=== PATIENT | female | born 1945 | race Caucasian/White ===

== ENCOUNTER 2018-08-04 09:28 | Inpatient (IN) | payer MEDICARE, OTHER ==
[2018-08-04] MEDS ORDERED: Lidocaine Viscous Sol 2% 15 ml UD Cup ONE (10:07)
[2018-08-04] MEDS ORDERED: Mag-Al 1200 mg/1200 mg/30 ML UDCUP ONE (10:09)
[2018-08-04] MEDS ORDERED: Ondansetron PF 4 MG/2 ML Vial ONE (10:09)
[2018-08-04 10:22] LABS: ALT (SGPT) 19 U/L (8-55); AST (SGOT) 28 U/L (5-34); Albumin 4.4 g/dL (3.4-4.8); Alkaline Phosphatase 94 U/L (40-150); Anion Gap 16 mmol/L (10-20); BUN (Urea Nitrogen) 10 mg/dL (9.8-20.1); Bilirubin, Total 0.5 mg/dL (0.2-1.2); Calc. Creatinine Clearance 0 mL/min (70-130); Calcium 8.8 mg/dL (7.8-10.44); Carbon Dioxide 25 mmol/L (23-31); Chloride 81 mmol/L (98-107); Estimated GFR-MDRD Greater than 90; Globulin 3.2 g/dL (2.4-3.5); Glucose 142 mg/dL (83-110); Protein, Total 7.6 g/dL (6.0-8.3)
[2018-08-04 10:26] LABS: CKMB 5.2 ng/mL (0-6.6); Troponin I Less than 0.010 ng/mL (< 0.028)
[2018-08-04 10:32] LABS: Potassium 2.8 mmol/L (3.5-5.1); Sodium 119 mmol/L (136-145)
--- NOTE | 2018-08-04 10:38 | RAD ---
FRONTAL RADIOGRAPH CHEST: Date: 08/04/18 COMPARISON: None. HISTORY: Cough. FINDINGS: There is elevation of the right hemidiaphragm. Heart and mediastinal contours are stable. There is at herosclerotic calcification of the aortic arch. There is no pneumothorax or pleural fluid, and no lob ar consolidation or alveolar edema. IMPRESSION: Elevation of right hemidiaphragm. No focal consolidation or alveolar edema. POS: [facility]
[2018-08-04 10:47] LABS: Band 4 % (5-11); Eosinophils 1 % (0-10); Hemoglobin 13.9 g/dL (12.0-16.0); Lymphocytes 19 % (21-51); MDiff Complete? YES; Mean Corpuscular HGB CONC 34.3 g/dL (32.0-36.0); Mean Corpuscular Hemoglobin 27.7 pg (27.0-31.0); Mean Corpuscular Volume 80.9 fL (78.0-98.0); Mean Platelet Volume 7.4 fL (7.4-10.4); Monocytes 10 % (0-10); Neutrophil 66 % (42-75); PLT Morphology Comment Appears Adequate; Platelet Count 235 thou/uL (130-400); RBC Distribution Width 12.4 % (11.5-14.5); Red Blood Cell (RBC) Count 5.03 mill/uL (4.20-5.40); White Blood Cell (WBC) Count 2.5 thou/uL (4.8-10.8)
[2018-08-04] MEDS ORDERED: Potassium Chloride 20 MEQ TAB ONE (11:01)
[2018-08-04 11:51] LABS: Bilirubin Negative (Negative); Blood, Urine Trace (Negative); Clarity CLEAR (Clear); Glucose, Urine (Dipstick) 100 mg/dL (Negative); Leukocyte Negative (Negative); Nitrite Negative (Negative); Protein, Urine (Dipstick) 100 mg/dL (Neg-Trace); Specific Gravity, Urine 1.011 (1.002-1.036); Urobilinogen 0.2 mg/dL (0.2-1.0); pH, Urine 7.5 (5.0-9.0)
[2018-08-04 11:56] LABS: Bacteria/HPF None Seen HPF (None Seen); Hyaline Casts/LPF 0-3 HYALINE CAST LPF (0-3 Hyaline); Pathc Cast-AUWi Flag 0.14 (0-2.49); Squamous Epithelial 0-3 HPF (0-3); WBC/HPF 0-3 HPF (0-3)
[2018-08-04] MEDS ORDERED: Potassium Chloride 20 MEQ/100 ML PREMIX BAG ONE (11:56)
[2018-08-04] MEDS ORDERED: Sodium Chloride 0.9% 1,000 ML IV SCH (13:00)
[2018-08-04] MEDS ORDERED: NS 0.9% w/ 40 MEQ KCL 1,000 ML IV SCH (13:00)
[2018-08-04 13:04] LABS: PTT 49.4 SEC (22.9-36.1); Prothrombin Time 13.2 SEC (12.0-14.7)
[2018-08-04] MEDS ORDERED: Melatonin 3 MG TAB PO PRN (13:36)
[2018-08-04] MEDS ORDERED: hydrALAZINE 20 MG/ML VIAL SLOW IVP PRN (13:37)
[2018-08-04] MEDS: Potassium Chloride 20 MEQ in Premix Bag 1 BAG IVPB SCH ×3 (14:47→17:18)
[2018-08-04 14:50] VITALS: BMI 32.0
--- NOTE | 2018-08-04 15:21 | HP ---
PRIMARY CARE PROVIDER: Dr. Agata Wang at [facility]. CHIEF COMPLAINT: Generalized weakness. HISTORY OF PRESENT ILLNESS: Ms. Avila is a pleasant 72-year-old lady, who was seen at [facility] on August 04, 2018. She reports that over the last week, she has been having generalized weakness. She also reports nausea and vomiting over the last week. It has been getting progressively worse, and now, she is unable to tolerate any liquids or solids. She reports having constant dry retching. She has been unable to sleep well secondary to symptoms. She denies any diarrhea, but reports that one of the days, she had 3 loose stools. Her last bowel movement was 2 days ago. She denies any fevers or chills. She denies any abdominal pain. She went to [facility] yesterday and was told that she probably had a viral infection. She came to the emergency room today because of ongoing symptoms. She also reports on and off cough, which is productive of occasional sputum. She tried Robitussin at home. She reports that she has not been urinating a lot. REVIEW OF SYSTEMS: All other systems reviewed and found to be negative. PAST MEDICAL HISTORY: Significant for hypertension and breast cancer, status post radiation therapy and tamoxifen for 5 years, initially diagnosed in 2004. PAST SURGICAL HISTORY: Hysterectomy. FAMILY HISTORY: No family history of coronary artery disease. SOCIAL HISTORY: The patient denies tobacco use, alcohol use, or recreational drug use. She lives alone at home. CODE STATUS: I discussed her code status. She is full code. ALLERGIES: ASPIRIN AND CODEINE. CURRENT MEDICATIONS: 1. Atenolol 25 mg 2 times a day. 2. Hydrochlorothiazide 12.5 mg daily. PHYSICAL EXAMINATION: GENERAL: Ms. Avila is awake and alert, not in acute distress. VITAL SIGNS: Blood pressure 174/71, pulse 80, respiratory rate 18, and oxygen saturation 96% on room air. She is afebrile. EYES: No scleral icterus. No conjunctival pallor. ENT: Dry mucosal membranes. No oropharyngeal erythema or exudates. NECK: Supple, nontender. Trachea is midline. RESPIRATORY: Accessory muscles of breathing are not active. Chest wall movements are symmetric bilaterally. Lungs are clear to auscultation without wheeze, rhonchi, or crepitations. CARDIOVASCULAR: S1 and S2 are heard, regular. Peripheral pulses palpable. No carotid bruits. No pericardial rub. ABDOMEN: Soft, nontender. Bowel sounds heard. No hepatomegaly. No splenomegaly. NEUROLOGIC: Cranial nerves 2 through 12 intact. MUSCULOSKELETAL: Power is 5/5 in all 4 extremities. SKIN: No rashes or subcutaneous nodules. LYMPHATICS: No cervical lymphadenopathy. PSYCHIATRIC: Normal mood, normal affect, the patient is oriented to person, place, and time. LABS AND INVESTIGATIONS: Ms. Avila' labs and investigations were reviewed. I reviewed her electrocardiogram, which shows normal sinus rhythm, no ST changes to suggest an acute coronary syndrome. I also reviewed her chest x-ray, which does not show any pulmonary infiltrates. She has leukopenia with 2500 white cells, normal hemoglobin, normal platelet count. INR 1.0. Hyponatremia with sodium 119, hypokalemia with potassium 2.8, decreased serum osmolality of 251, normal blood urea nitrogen, normal creatinine, normal LFTs, and normal troponin I. Urinalysis is positive for protein, glucose, ketones, and blood. ASSESSMENT AND PLAN: Ms. Avila is a pleasant 72-year-old lady, who was seen at [facility] on August 04, 2018. Her problem list includes: 1. Hyponatremia: Ms. Avila is presenting with hyponatremia. Clinically, she is dehydrated. We will check urine electrolytes and osmolality. We will start Ms. Avila on intravenous fluids and recheck electrolytes. Nephrology Service is also being consulted. 2. Hypokalemia: We will replace potassium and recheck. 3. Dehydration: The patient will receive intravenous normal saline. We will attempt clear fluid diet if she can tolerate. 4. Hypertension: We will discontinue hydrochlorothiazide, given her hyponatremia. We will start p.r.n. IV hydralazine. We will continue atenolol. We will monitor vital signs and titrate antihypertensives as needed. Many thanks for allowing me to participate in your patient's care. Please feel free to contact with any questions or concerns. LEVEL OF RISK: High. LEVEL OF COMPLEXITY: High. Job ID: [id number]
[2018-08-04 16:39] LABS: Potassium, Urine Less than 10.0 mmol/L; Sodium, Urine 25 mmol/L (Not Available)
[2018-08-04 18:39] LABS: Anion Gap 15 mmol/L (10-20); Carbon Dioxide 23 mmol/L (23-31); Chloride 93 mmol/L (98-107); Potassium 3.6 mmol/L (3.5-5.1); Sodium 127 mmol/L (136-145)
[2018-08-04] MEDS ORDERED: Atenolol 25 MG TAB PO SCH (21:00)
[2018-08-04 21:26] LABS: Potassium 3.1 mmol/L (3.5-5.1)
[2018-08-04] MEDS: Atenolol 50 MG TAB PO SCH (22:00)
[2018-08-04] MEDS: Acetaminophen 325 MG TAB PO PRN (22:01)
[2018-08-05 05:28] LABS: #Monocytes 0.4 thou/uL (0.11-0.59); #Neutrophils 2.3 thou/uL (1.40-6.50); %Basophils 0.1 % (0.0-1.0); %Eosinophils 0.2 % (0.0-10.0); %Lymphocytes 27.2 % (21.0-51.0); %Monocytes 11.2 % (0.0-10.0); %Neutrophils 61.2 % (42.0-75.0); Hemoglobin 13.6 g/dL (12.0-16.0); Mean Corpuscular HGB CONC 34.7 g/dL (32.0-36.0); Mean Corpuscular Hemoglobin 28.6 pg (27.0-31.0); Mean Corpuscular Volume 82.7 fL (78.0-98.0); Mean Platelet Volume 7.4 fL (7.4-10.4); Platelet Count 220 thou/uL (130-400); RBC Distribution Width 12.5 % (11.5-14.5); Red Blood Cell (RBC) Count 4.75 mill/uL (4.20-5.40); White Blood Cell (WBC) Count 3.8 thou/uL (4.8-10.8)
[2018-08-05 05:40] LABS: Anion Gap 14 mmol/L (10-20); BUN (Urea Nitrogen) 11 mg/dL (9.8-20.1); Calc. Creatinine Clearance 85 mL/min (70-130); Calcium 8.4 mg/dL (7.8-10.44); Carbon Dioxide 22 mmol/L (23-31); Chloride 94 mmol/L (98-107); Estimated GFR-MDRD 89; Glucose 88 mg/dL (83-110); Potassium 3.1 mmol/L (3.5-5.1); Sodium 127 mmol/L (136-145)
[2018-08-05] MEDS: Enoxaparin Sodium 40 MG/0.4 ML SYRINGE SC SCH (07:49)
[2018-08-05] MEDS: Atenolol 50 MG TAB PO SCH ×2 (07:49→20:41)
[2018-08-05] MEDS: Potassium Chloride 20 MEQ TAB PO SCH ×3 (09:34→16:18)
[2018-08-05 12:18] LABS: Potassium 3.9 mmol/L (3.5-5.1)
[2018-08-05] MEDS: Sodium Chloride 0.9% 1,000 ML IV SCH (14:51)
[2018-08-05] MEDS: Acetaminophen 325 MG TAB PO PRN (20:47)
--- NOTE | 2018-08-05 21:13 | PRG ---
DATE OF SERVICE: 08/05/2018 SUBJECTIVE: Patient was seen and examined at bedside and overnight events noted. Patient denies any shortness of breath or chest pain or palpitation. No history of nausea or vomiting or diarrhea or fever or chills or cramps. OBJECTIVE: GENERAL: This is a well-built female, in no apparent distress. VITAL SIGNS: Temperature 98.6, pulse 72, respirations 17, blood pressure 152/67. HEENT: Atraumatic, normocephalic. Oral mucosa is moist NECK: Supple. CARDIOVASCULAR: S1, S2 heard. Rate and rhythm regular. RESPIRATORY: Clear to auscultation. GASTROINTESTINAL: Abdomen is soft. MUSCULOSKELETAL: No tenderness. No edema. DERMATOLOGIC: No skin rash. NEUROLOGIC: Alert and awake and oriented X3. No focal neurologic deficits. Moving all the extremities. PSYCHIATRIC: Mood and affect normal. LABORATORY DATA: Sodium is 126, potassium is 3.9. ASSESSMENT AND PLAN: 1. Hyponatremia, although level is stable, continue on IV fluids. 2. Hypokalemia, replace. 3. Edema. 4. Hypertension, stable. 5. We will monitor sodium closely. Job ID: [id number]
[2018-08-06 05:55] LABS: #Lymphocytes 0.8 thou/uL (1.20-3.40); #Monocytes 0.4 thou/uL (0.11-0.59); #Neutrophils 1.5 thou/uL (1.40-6.50); %Basophils 0.3 % (0.0-1.0); %Eosinophils 0.2 % (0.0-10.0); %Lymphocytes 30.5 % (21.0-51.0); Hemoglobin 12.6 g/dL (12.0-16.0); Mean Corpuscular Hemoglobin 28.7 pg (27.0-31.0); Mean Corpuscular Volume 84.4 fL (78.0-98.0); Mean Platelet Volume 7.2 fL (7.4-10.4); Platelet Count 187 thou/uL (130-400); RBC Distribution Width 12.7 % (11.5-14.5); Red Blood Cell (RBC) Count 4.38 mill/uL (4.20-5.40); White Blood Cell (WBC) Count 2.7 thou/uL (4.8-10.8)
[2018-08-06 06:02] LABS: Anion Gap 11 mmol/L (10-20); BUN (Urea Nitrogen) 10 mg/dL (9.8-20.1); Calc. Creatinine Clearance 103 mL/min (70-130); Calcium 8.1 mg/dL (7.8-10.44); Carbon Dioxide 21 mmol/L (23-31); Chloride 101 mmol/L (98-107); Estimated GFR-MDRD Greater than 90; Glucose 95 mg/dL (83-110); Magnesium 2.1 mg/dL (1.6-2.6); Sodium 129 mmol/L (136-145)
[2018-08-06] MEDS: Atenolol 50 MG TAB PO SCH (09:27)
[2018-08-06] MEDS: Enoxaparin Sodium 40 MG/0.4 ML SYRINGE SC SCH (09:27)
[2018-08-06] MEDS: Sodium Chloride 0.9% 1,000 ML IV SCH (09:28)
[2018-08-06 10:53] VITALS: BP 170/75; TEMP 98.7
--- NOTE | 2018-08-07 07:48 | CON ---
DATE OF CONSULTATION: 08/04/2018 TYPE OF CONSULTATION: Nephrology. CONSULTING PHYSICIAN: Dr. De La Fuente. REASON FOR CONSULTATION: Hyponatremia. REASON FOR ADMISSION: Weakness. HISTORY OF PRESENT ILLNESS: This is a 72-year-old female with a history of hypertension, breast cancer, came to the hospital with weakness and was found to have sodium of 119. Nephrology was consulted. The patient was started on IV fluids. The patient was given 1-liter bolus in the ER sodium was 127, and the plan is to stop on IV fluids. The patient complains of diarrhea. No nausea or vomiting. No fever or chills. PAST MEDICAL HISTORY: Positive for hypertension, breast cancer. PAST SURGICAL HISTORY: Hysterectomy. HOME MEDICATIONS: 1. Atenolol. 2. Hydrochlorothiazide. ALLERGIES: CODEINE AND ASPIRIN. SOCIAL HISTORY: No smoking, alcohol, or illicit drugs. FAMILY HISTORY: No history of kidney disease. REVIEW OF SYSTEMS: CONSTITUTIONAL: Negative for weight loss or gain, sense of well-being, ability to conduct usual activities, exercise tolerance. SKIN/BREAST: Negative for rash, itching, changes in hair growth or loss, nail changes, breast lumps, tenderness, swelling, nipple discharge. EYES: Negative for vision, double vision, tearing, blind spots, pain. ENT/MOUTH: Negative for headaches, vertigo, lightheadedness, injury. Vision, double vision, tearing, blind spots, pain, nose bleeding, colds, obstruction, discharge, dental difficulties, gingival bleeding, dentures, neck stiffness, pain, tenderness, masses in thyroid or other areas CARDIOVASCULAR: Negative for precordial pain, substernal distress, palpitations, syncope, dyspnea on exertion, orthopnea, nocturnal paroxysmal dyspnea, edema, cyanosis, hypertension, heart murmurs, varicosities, phlebitis, claudication. RESPIRATORY: Negative for pain, shortness of breath, wheezing, stridor, cough, hemoptysis, fever or night sweats GASTROINTESTINAL: Negative for poor appetite, dysphagia, indigestion, abdominal pain, heartburn, eructation, nausea, vomiting, hematemesis, jaundice, constipation, or diarrhea, abnormal stools (jarrett-colored, tarry, bloody, greasy, foul smelling), flatulence, hemorrhoids, recent changes in bowel habits. GENITOURINARY: Negative for urgency, frequency, dysuria, nocturia, hematuria, polyuria, oliguria, unusual (or change in) color of urine, stones, hesitancy, change in size of stream, dribbling, acute retention or incontinence, libido, potency. MUSCULOSKELETAL: Negative for pain, swelling, redness or heat of muscles or joints, limitation of motion, muscular weakness, atrophy, cramps. NEUROLOGIC/PSYCHIATRIC: Negative for convulsions, paralyses, tremor, incoordination, parasthesias, difficulties with memory of speech, sensory or motor disturbances, or muscular coordination (ataxia, tremor), emotional problems, anxiety, depression, previous psychiatric care, unusual perceptions, hallucinations. ALLERGY/IMMUNOLOGIC: Negative for skin rash, anemia, bleeding tendency, polydipsia, polyuria, intolerance to heat or cold. PHYSICAL EXAMINATION: GENERAL: Reveals a well-built female, in no apparent distress. VITAL SIGNS: Temperature , pulse 74, respirations , blood pressure 131/60. HEENT: Atraumatic and normocephalic. Oral mucosa is dry. NECK: Supple. CARDIOVASCULAR: S1 and S2. Heart rate and rhythm are regular. RESPIRATORY: Clear. GASTROINTESTINAL: Abdomen is soft. MUSCULOSKELETAL: . DERMATOLOGIC: No skin rash. NEUROLOGIC: Alert and awake. PSYCHIATRIC: Mood and affect normal. LABORATORY DATA: Sodium is 119 up to 127, potassium is 2.8 up to 3.6. Creatinine is 0.6. ASSESSMENT: 1. Hyponatremia, most likely hypovolemic and hypoosmolar. Plan is to start IV fluids, but sodium is already corrected, 8 points higher, and we will stop IV fluids and recheck sodium. 2. Hypokalemia. Replace. 3. Monitor magnesium. 4. Hypertension, stable. 5. Edema, controlled. 6. Monitor sodium closely. We will hold IV fluids for now. Recheck sodium at 9:00 p.m. today. Thank you for the consult. Job ID: [id number]
--- NOTE | 2018-08-07 07:49 | PRG ---
DATE OF SERVICE: 08/06/2018 SUBJECTIVE: Patient was seen and examined at bedside and overnight events noted. Patient denies any shortness of breath or chest pain or palpitation. No history of nausea or vomiting or diarrhea or fever or chills or cramps. OBJECTIVE: GENERAL: This is a well-built female, in no apparent distress and wants to go home. VITAL SIGNS: Temperature 98.6. Heart rate 82. Respiratory rate 16. Blood pressure 139/62. HEENT: Atraumatic, normocephalic. Oral mucosa is moist. NECK: Supple. CARDIOVASCULAR: S1, S2 heard. Rate and rhythm regular. RESPIRATORY: Clear to auscultation. GASTROINTESTINAL: Abdomen is soft. MUSCULOSKELETAL: No tenderness. No edema. DERMATOLOGIC: No skin rash. NEUROLOGIC: Alert and awake and oriented X3. No focal neurologic deficits. Moving all the extremities. PSYCHIATRIC: Mood and affect normal. LABORATORY DATA: Sodium is 129, creatinine is 0.5. ASSESSMENT AND PLAN: 1. Hyponatremia. Levels are better. Okay to send home. Advised to have good adequate hydration at home. 2. Hypokalemia, replace. 3. Edema, controlled. 4. Hypertension. I agree with holding hydrochlorothiazide for now and follow with the clinic in 1 week. The patient was advised to check BMP and mag level before followup. Job ID: [id number]
--- NOTE | 2018-08-07 07:51 | DIS ---
DATE OF ADMISSION: 08/04/2018 DATE OF DISCHARGE: 08/06/2018 PRIMARY CARE PROVIDER: Dr. Agata Wang. DISCHARGE DIAGNOSES: 1. Hyponatremia. 2. Hypokalemia. 3. Dehydration. CONDITION OF PATIENT ON THE DAY OF DISCHARGE: Stable. I assessed Ms. Avila on the day of discharge. She denies any chest pain or shortness of breath. Vital signs are stable. S1 and S2 are heard, regular. Lungs are clear to auscultation bilaterally. CONSULTATIONS DURING THIS HOSPITALIZATION: Nephrology, Dr. Goldman. DISCHARGE MEDICATIONS: 1. Atenolol 50 mg 2 times a day. 2. Hydrochlorothiazide has been discontinued. HOSPITAL COURSE: Ms. Avila is a pleasant 73-year-old lady, who was admitted to [facility] on August 04, 2018, for hyponatremia and hypokalemia as well as dehydration. Please refer to my history and physical note dated August 04, 2018, for further details. She was seen by Nephrology Service. She received intravenous fluids, improvement in her sodium. Hydrochlorothiazide has been discontinued. She has been discharged home in a stable condition and advised to follow up with her primary care provider in 3 to 5 days to have her Chem-7 rechecked. On the day of discharge, Ms. Avila has sodium 129, potassium 4.0, creatinine 0.54, calcium 8.1. White count 2700, hemoglobin 12.6, and platelet count 187. Please note that her white count ranged between 2.5 and 3.8 during this hospitalization. It is unclear whether the leukopenia is new or whether she needs any further workup for that. I will leave it to the discretion of the primary care provider. Many thanks for allowing me to participate in your patient's care. Please feel free to contact me with any questions or concerns. DISCHARGE DESTINATION: Home. TOTAL AMOUNT OF TIME SPENT COORDINATING THIS DISCHARGE: 32 minutes. Job ID: [id number]
== END 2018-08-06 11:30 | disposition home or self-care (01) | DRG 641 ==
LOC: ERS 09:28 → 2NO 12:45
PROVIDERS: ADMIT Internal Medicine; ATTEND Internal Medicine
DX: E87.1 Hypo-osmolality and hyponatremia (principal); E86.0 Dehydration; E87.6 Hypokalemia; I10 Essential (primary) hypertension
CPT/HCPCS: 36415; 71045; 80048; 80053; 81003; 81015; 82436; 82553; 82570; 83735; 83930; 83935; 84133; 84300; 84484; 85025; 85610; 85730; 87804; 93005; 96361; 96365; 96366; 96367; 96375; J1650; J2405; J3475; J3480; J7050